=== PATIENT | male | born 1940 | race African-American/Black ===

== ENCOUNTER 2020-03-12 12:31 | Observation (INO) | payer SELFPAY ==
[~2020-03-12] VITALS: Ht 167.6 cm; Wt 83.6 kg
[2020-03-12] MEDS ORDERED: SODIUM CHLORIDE FLUSH 10ML SYR IVF ONE ×2 (13:00→13:30)
[2020-03-12] MEDS ORDERED: HYDROmorphone 1 MG/ML, 1ML INJ IV ONE (13:30)
[2020-03-12] MEDS ORDERED: ONDANSETRON 2MG/ML, 2ML IVPush ONE (13:30)
[2020-03-12] MEDS ORDERED: HYDROmorphone 1 MG/ML, 1ML INJ ONE ×2 (13:43→16:24)
[2020-03-12] MEDS ORDERED: ONDANSETRON 2MG/ML, 2ML ONE (13:43)
[2020-03-12 13:54] LABS: MEAN CORPUSCULAR HEMOGLOBIN 29.3 pg (27.5-34.5); MEAN CORPUSCULAR HGB CONC 32.4 g/dL (33.2-36.2); MEAN CORPUSCULAR VOLUME 90.3 fL (81-97); MEAN PLATELET VOLUME 8.2 fL (7.4-10.4); PLATELET COUNT 213 x10^3/uL (130-400); RED BLOOD COUNT 4.51 x10^6/uL (4.38-5.82); RED CELL DISTRIBUTION WIDTH 14.6 % (9.4-14.8)
[2020-03-12 13:56] LABS: ALANINE AMINOTRANSFERASE 28 U/L (12-78); ALBUMIN 3.5 g/dL (3.4-5.0); ANION GAP 4 mmol/L (5-15); CALCIUM 10.4 mg/dL (8.5-10.1); CHLORIDE 114 mmol/L (98-107); CREATININE 1.14 mg/dL (0.7-1.3)
[2020-03-12 14:00] LABS: ALKALINE PHOSPHATASE 78 U/L (45-117); TOTAL PROTEIN 6.9 g/dL (6.4-8.2); TROPONIN I < 0.015 ng/mL (0.000-0.045)
[2020-03-12] MEDS ORDERED: methylPREDNISolone SOD SUCC 125 MG/2 ML ONE (14:14)
[2020-03-12] MEDS ORDERED: DIPHENHYDRAMINE 50 MG/ML, 1ML ONE (14:14)
[2020-03-12 14:22] LABS: BASOPHILS # (AUTO) 0.15 x10^3/uL (0-0.1); BASOPHILS % (AUTO) 3 % (0-1); EOSINOPHILS # (AUTO) 0.12 x10^3/uL (0-0.4); EOSINOPHILS % (AUTO) 2 % (1-7); LYMPHOCYTES # (AUTO) 1.67 x10^3/uL (1-3.4); LYMPHOCYTES % (AUTO) 29 % (22-44); MONOCYTES # (AUTO) 0.75 x10^3/uL (0.2-0.8); MONOCYTES % (AUTO) 13 % (2-9); NEUTROPHILS # (AUTO) 3.08 x10^3/uL (1.8-6.8); NEUTROPHILS % (AUTO) 53 % (42-75)
[2020-03-12 14:23] LABS: MD SCAN
[2020-03-12] MEDS ORDERED: DIPHENHYDRAMINE 50 MG/ML, 1ML IVPush ONE (14:30)
[2020-03-12] MEDS ORDERED: methylPREDNISolone SOD SUCC 125 MG/2 ML IVPush ONE (14:30)
[2020-03-12] MEDS ORDERED: OMNIPAQUE 350 MG/ML, 100ML BOTTLE ONE (15:08)
[2020-03-12] MEDS ORDERED: SODIUM CHLORIDE FLUSH 10ML SYR IVF PRN (16:00)
[2020-03-12] MEDS ORDERED: ASPI-496 PO (16:29)
[2020-03-12] MEDS ORDERED: ONDANSETRON 2MG/ML, 2ML IVPush PRN (16:30)
[2020-03-12] MEDS ORDERED: ENALAPRILAT 1.25 MG/ML, 2ML IVPush PRN (16:30)
[2020-03-12] MEDS ORDERED: ACETAMINOPHEN 325 MG TABLET PO PRN (16:30)
[2020-03-12] MEDS ORDERED: MELATONIN 5 MG TABLET PO PRN (16:30)
[2020-03-12] MEDS ORDERED: HYDROmorphone 1 MG/ML, 1ML INJ IV PRN (16:30)
[2020-03-12] MEDS ORDERED: ONDANSETRON ODT 4 MG PO PRN (16:30)
[2020-03-12] MEDS ORDERED: DIPHENHYDRAMINE 25 MG CAPSULE PO PRN (17:00)
[2020-03-12 17:12] VITALS: BP 138/87
[2020-03-12] MEDS: METOPROLOL TARTRATE 25 MG TAB PO SCH (18:23)
[2020-03-12] MEDS: morphine SULFATE 10 MG/ML, 1ML IVPush PRN ×2 (18:30→21:53)
[2020-03-12 19:19] VITALS: BP 127/85
[2020-03-12 20:55] LABS: TROPONIN I < 0.015 ng/mL (0.000-0.045)
[2020-03-12] MEDS ORDERED: ATORVASTATIN 40 MG TABLET PO SCH (21:00)
[2020-03-13 00:42] VITALS: BP 115/78
[2020-03-13] MEDS: morphine SULFATE 10 MG/ML, 1ML IVPush PRN (02:48)
[2020-03-13] MEDS: METOPROLOL TARTRATE 25 MG TAB PO SCH (05:36)
[2020-03-13] MEDS ORDERED: ASPIRIN 325 MG TABLET PO SCH (06:00)
== END 2020-03-13 06:00 | disposition left against medical advice (07) ==
LOC: ED 14:27 → EDIP 15:42 → INTOOBSV 15:42 → 5SO 16:48
PROVIDERS: ADMIT Internal Medicine; ATTEND Hospitalist
DX: R07.89 Other chest pain (principal); I25.10 Atherosclerotic heart disease of native coronary artery without angina pectoris; Z95.5 Presence of coronary angioplasty implant and graft; Z86.711 Personal history of pulmonary embolism
CPT/HCPCS: 36415; 71045; 71275; 80053; 83880; 84484; 85025; 93005; 96374; 96375; 96376; 99285; G0378; J1170; J1200; J2270; J2405; J2930; Q9967